=== PATIENT | female | born 2000 | race Caucasian/White ===

== ENCOUNTER 2020-10-07 09:09 | Outpatient (RCR) | payer OTHER, MEDICAID, SELFPAY ==
--- NOTE | 2020-10-07 17:52 | OT.OP.DC ---
Visit Care Team Role Provider Type Venus Overton DO Attending Provider Physician Primary Care Provider Referring Provider Address: [address] [place] [address], [address], [place], [address] Email: [email or web address] Outpatient OT Outpatient Pediatric Evaluation Start: 10/07/20 17:13 Freq: Status: Active Protocol: Document 10/07/20 17:13 BM (Rec: 10/07/20 17:50 BM [id number]) Pediatric Evaluation - General Information Session Time Visit Start Time 09:30 Visit Stop Time 10:25 Total Visit Minutes 55 Visit Information Visit Number 1 Plan of Care Dates Evaluation only - 10/07/20 Insurance Information [facility] Referral Referring Physician Venus Overton Reason for 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 Due to insurance coverage, Arelis is not able to consult with a orthopaedic technologist at this time. She self-reports having a long standing history of difficulty with feeding, starting around age 1. She reports that she cannot handle eating fruits and vegetables and experiences nausea when she tries. Arelis has a significant medical history that could directly impacting feeding including: anxiety, PCOS, perfume allergy, exercise- induced asthma, poor vision/ visual processing, depression. Additionally, Arelis reports chronic difficulty sleeping. She has recently started taking Unisom over the counter and reports that it is helping with sleep. Arelis is moving to [place] in a few weeks, so she will not be appropriate for follow-up treatment or longer term plan of care. POC will consist of evaluation only. : Number of Weeks Full term : Delivery oxytocin to stimulate labor; epidural for pain relief Summary Arelis was delivered vaginally with head presenting . She cried immediately and reportedly had appropriate scores. weight: 9 lbs, 6 oz. Mother did experience post- depression. - Language Assessment - - - - - Current Condition Current Condition OT Treatment Diagnosis feeding difficulties OT Onset Date of Problem 09/01/20 ADLs Feeding Diet Level for Self-Feeding Pt has not prescribed dietary restrictions. Self-Feeding Ability At this time, Arelis self- reports that she does not eat fruits or vegetables. Following skilled patient interview, restricted intake is likely d/t sensory processing dysfunction rather than oral-motor skill or medical dx. Pt reports that she often has difficulty recognizing when she is hungry , so she can tend to skip meals. Pt experiences significant and frequent nausea with certain textures including pulpy, slimy. Nausea is likely 2* FFF response combined with anxiety and poor experiences throughout life. Pt reports food jagging, impacting continued intake of foods such as white chocolate and egg nog. Pt previously consumed so much of both items that she got sick and no longer can tolerate them in her diet. Preferred foods include: crunchy foods such as granola bars, nuts; dairy (including yogurt - [place]); chocolate; sour gummies; protein bars. Skill Level Impaired Comments Pt ability to participate with feeding is likely impacted by sensory processing deficits. Based on reported interventions and supports that Arelis has in place at home and preferred foods, she is likely a proprioceptive seeker. She uses a stress ball to calm herself. Additionally , she enjoys long warm showers and her weighted blanket. She wears headphones covering her hears and providing pressure to her head in almost all situations and scenarios. She tends to perseverate on small auditory happenings such as breathing/ticking of clock, etc. Arelis indicates tactile defensiveness as well, preferring for hands to be clean. Significant response to tactile experience of non- preferred food (dione) in mouth. Able to tolerate on fingers for a while, however, noted to perseverate on washing hands to remove sticky juice. Visually, Arelis is likely sensitive as well, with presentation of foods directly relating to willingness to explore. Arelis would benefit from further instruction and information to support her sensory processing needs for optimal feeding experience. Goals Treatment Treatment Follow-up treatment not indicated at this time [place]t [place] Arelis would benefit from Occupational Therapy intervention to target sensory processing and feeding difficulties with more depth. Functional Wrist/Hand Scan Hand Side Sensory Assessment Sensory Profile2 OT Outpatient Treatment Note-Pediatrics Start: 10/07/20 17:13 Freq: Status: Active Protocol: Document 10/07/20 17:13 (Rec: 10/07/20 17:50 [id number]) OT Outpatient Pediatric Treatment Note Session Time Visit Start Date 10/07/20 Visit Start Time 09:30 Visit Stop Date 05/28/21 Visit Stop Time 10:25 Total Visit Minutes 55 Visit Information Visit Number 1 Plan of Care Dates Evaluation only - 10/07/20 Insurance Information [facility] Treatment Setting Outpatient Care Visit Type Note Type Initial Evaluation General Information General Information Please see evaluation. - Subjective Identification Type Name Identification Reconciled With Medical Record Chief Complaint(s) Sensory,Other Additional Area of Concern Feeding - Objective Objective Measurements Skilled patient interview and clinical observation of feeding activities. - Treatment Feeding Descriptor Pt interacts with non- preferred food (dione) to climb steps to eating hierarchy using visual for support. Peels orange and takes one bite to chew and swallow. Tolerance Fair - Assessment Patient Response to Treatment Good Rehabilitation Potential Good Impairments Identified ADLs,Sensory System Dysfunction,Processing of Sensory Input,Regulating Sensory System Assessment of Improvement Arelis demonstrates great self-awareness and ability to advocate for self and needs. She would benefit from continued services to target feeding and sensory processing to maximize her participation in ADL and general health. Noted to present with visceral response to non-preferred food, with ability to take one bite and chew to swallow. Noted gagging and preference to consume safe food subsequently. Overall, good interaction with non-preferred food and good understanding of steps to eating hierarchy and systematic desensitization technique. Home Exercise Program Provided pt with educational materials including steps to eating hierarchy, benefits and steps for systematic desensitization, heavy work activities, and suggested educating self on proprioceptive seeking. Patient/Caregiver Understanding Good - Plan Amount of Therapy Recommended No Further Therapy Provided Patient/Caregiver Instruction Questions/Concerns,Other Comment educational materials Therapy Recommendations Discharge from Occupational Therapy Additional Therapy Recommendations Pt would benefit from additional occupational therapy in the future.
== END 2020-10-11 07:52 | disposition home or self-care (01) ==
LOC: OT 09:09
PROVIDERS: PCP Family Medicine; Referring Provider Family Medicine; Visit Provider Family Medicine
DX: F50.82 Avoidant/restrictive food intake disorder (principal)
CPT/HCPCS: 97165; 97530